=== PATIENT | female | born 1990 | race Caucasian/White ===

== ENCOUNTER 2018-09-28 21:48 | Inpatient (IN) | payer BC ==
[2018-09-28] MEDS ORDERED: LACTATED RINGER'S 1,000 ML IV (21:53)
[2018-09-28] MEDS ORDERED: METHYLERGONOVINE 0.2 MG INJ IM ×2 (22:00→23:00)
[2018-09-28] MEDS ORDERED: BUTORPHANOL 2 MG INJ IV (22:00)
[2018-09-28] MEDS ORDERED: MISOPROSTOL 200 MCG TAB PR ×2 (22:00→23:00)
[2018-09-28] MEDS ORDERED: OXYTOCIN 30 UNITS/LR 500 ML IV ×2 (22:00→23:00)
[2018-09-28] MEDS ORDERED: LIDOCAINE 1% (MPF) 30 ML INJ INJ (22:00)
[2018-09-28] MEDS ORDERED: CARBOPROST 250 MCG INJ IM ×2 (22:00→23:00)
[2018-09-28] MEDS: BUTORPHANOL 2 MG INJ IV (22:19)
[2018-09-28] MEDS: LACTATED RINGER'S 1,000 ML IV* (22:34)
[2018-09-28 22:35] LABS: ADD MAN DIFF? NO
[2018-09-28] MEDS: LACTATED RINGER'S 1,000 ML IV (22:36)
[2018-09-28] MEDS: AMPICILLIN 2 GM/NS (PMX) 100 ML IV (22:36)
[2018-09-28] MEDS: MINERAL OIL LIGHT 10 ML VIAL TOP (22:37)
[2018-09-28] MEDS: OXYTOCIN 30 UNITS/LR 500 ML IV ×2 (22:38→23:38)
[2018-09-28 22:39] LABS: BASOPHIL # 0.1 10^3/ul (0.0-0.1); BASOPHILS % 0.5 % (0.0-2.0); EOSINOPHILS # 0.1 10^3/ul (0.0-0.5); EOSINOPHILS % 0.6 % (0.0-7.0); HEMATOCRIT 33.9 % (37.0-47.0); HEMOGLOBIN 11.5 g/dl (12.0-16.0); LYMPHOCYTES # 2.6 10^3/ul (0.8-2.9); LYMPHOCYTES % 20.5 % (15.0-51.0); MEAN CORPUSCULAR HEMOGLOBIN 32.4 pg (29.0-33.0); MEAN CORPUSCULAR HGB CONC 33.9 g/dl (32.0-37.0); MEAN CORPUSCULAR VOLUME 95.5 fl (82.0-101.0); MEAN PLATELET VOLUME 12.8 fl (7.4-10.4); MONOCYTE # 0.8 10^3/ul (0.3-0.9); MONOCYTES % 6.4 % (0.0-11.0); NEUTROPHIL # 8.9 10^3/ul (1.6-7.5); NEUTROPHILS % 71.3 % (39.0-77.0); PLATELET COUNT 168 10^3/UL (140-415); RED BLOOD COUNT 3.55 10^6/ul (4.20-5.40); RED CELL DISTRIBUTION WIDTH 12.7 % (11.5-14.5)
[2018-09-28 22:39] LABS: WHITE BLOOD COUNT 12.4 10^3/ul (4.8-10.8)
[2018-09-28 23:00] LABS: INR 0.89; PROTIME 12.2 Sec (11.9-14.9)
[2018-09-28] MEDS ORDERED: SENNA/DOCUSATE NA (8.6MG/50MG) TAB PO (23:00)
[2018-09-28] MEDS ORDERED: DIBUCAINE 1% 30 GM OINT TOP (23:00)
[2018-09-28] MEDS ORDERED: ONDANSETRON 4 MG INJ IV (23:00)
[2018-09-28] MEDS ORDERED: ACETAMINOPHEN 325 MG TAB PO ×2 (23:00)
[2018-09-28] MEDS ORDERED: MAGNESIUM HYDROXIDE 30ML CUP PO (23:00)
[2018-09-28 23:01] LABS: PARTIAL THROMBOPLASTIN TIME 27.1 Sec (23.0-35.0)
[2018-09-28 23:05] LABS: ALANINE AMINOTRANSFERASE 33 IU/L (13-69); ALBUMIN 3.9 g/dl (3.3-4.9); ALBUMIN/GLOBULIN RATIO 1.05; ALKALINE PHOSPHATASE 447 IU/L (42-121); ANION GAP 12 (5-13); ASPARTATE AMINO TRANSFERASE 38 IU/L (15-46); BILIRUBIN,INDIRECT 0.5 mg/dl (0-1.1); BILIRUBIN,TOTAL 0.5 mg/dl (0.2-1.3); BLOOD UREA NITROGEN 4 mg/dl (7-20); CALCIUM 9.6 mg/dl (8.4-10.2); CARBON DIOXIDE 19 mmol/L (21-31); CHLORIDE 108 mmol/L (97-110); CREATININE 0.53 mg/dl (0.44-1.00); Estimated GFR > 60 mL/min (>60); GLUCOSE 85 mg/dl (70-220); POTASSIUM 4.5 mmol/L (3.5-5.1); SODIUM 139 mmol/L (135-144); TOTAL PROTEIN 7.6 g/dl (6.1-8.1)
[2018-09-28 23:19] LABS: URIC ACID 5.1 mg/dl (3.1-7.9)
[2018-09-28 23:33] LABS: HEPATITIS B SURFACE ANTIGEN NEGATIVE (NEGATIVE)
[2018-09-28 23:56] LABS: HIV 1&2 ANTIBODY NEGATIVE (NEGATIVE)
[2018-09-29] MEDS: IBUPROFEN 600 MG TAB PO ×3 (00:22→15:07)
[2018-09-29] MEDS ORDERED: LABETALOL HCL 20MG INJ IV (00:34)
[2018-09-29] MEDS: LABETALOL HCL 20MG INJ IV ×2 (00:54→03:05)
[2018-09-29 01:39] LABS: BARBITURATES Negative (NEGATIVE); BENZODIAZEPINES Negative (NEGATIVE); CANNABINOIDS Positive (NEGATIVE); COCAINE Negative (NEGATIVE); OPIATES Negative (NEGATIVE)
[2018-09-29 01:45] LABS: AMPHETAMINE/METHAMPHETAMINE Positive (NEGATIVE)
[2018-09-29 02:47] LABS: ADD UMIC NO; UR ASCORBIC ACID NEGATIVE (NEGATIVE); UR BILIRUBIN (Dip) NEGATIVE (NEGATIVE); UR BLOOD (Dip) NEGATIVE (NEGATIVE); UR CLARITY CLEAR (CLEAR); UR COLOR YELLOW (YELLOW); UR GLUCOSE (Dip) NEGATIVE (NEGATIVE); UR KETONES (Dip) 1+ mg/dL (NEGATIVE); UR LEUKOCYTE ESTERASE (Dip) NEGATIVE Leu/ul (NEGATIVE); UR NITRITE (Dip) NEGATIVE (NEGATIVE); UR TOTAL PROTEIN (Dip) NEGATIVE (NEGATIVE); UR UROBILINOGEN (Dip) NEGATIVE (NEGATIVE)
[2018-09-29] MEDS: AMPICILLIN 1 GM/NS (PMX) 50 ML IV (03:00)
[2018-09-29] MEDS: LABETALOL 100 MG TAB PO ×3 (03:03→21:45)
[2018-09-29] MEDS: hydrALAzine 20 MG INJ IV (03:46)
[2018-09-29] MEDS: OXYTOCIN 30 UNITS/LR 500 ML IV (03:56)
[2018-09-29] MEDS: WITCH HAZEL/GLYCERIN PAD PR (06:04)
[2018-09-29] MEDS: LANOLIN HPA 1 PKT TOP (06:05)
[2018-09-29] MEDS: BENZOCAINE 20% 56 ML SPRAY TOP (06:05)
[2018-09-29] MEDS: LACTATED RINGER'S 1,000 ML IV* ×2 (06:34→14:34)
[2018-09-29 06:41] LABS: ADD MAN DIFF? NO
[2018-09-29 06:48] LABS: BASOPHILS % 0.3 % (0.0-2.0); EOSINOPHILS % 0.3 % (0.0-7.0); HEMOGLOBIN 8.2 g/dl (12.0-16.0); LYMPHOCYTES # 2.2 10^3/ul (0.8-2.9); MEAN CORPUSCULAR HEMOGLOBIN 32.9 pg (29.0-33.0); MEAN CORPUSCULAR HGB CONC 34.2 g/dl (32.0-37.0); MEAN CORPUSCULAR VOLUME 96.4 fl (82.0-101.0); MEAN PLATELET VOLUME 12.8 fl (7.4-10.4); MONOCYTE # 0.8 10^3/ul (0.3-0.9); MONOCYTES % 6.2 % (0.0-11.0); NEUTROPHIL # 9.7 10^3/ul (1.6-7.5); NEUTROPHILS % 75.7 % (39.0-77.0); PLATELET COUNT 121 10^3/UL (140-415); RED BLOOD COUNT 2.49 10^6/ul (4.20-5.40); RED CELL DISTRIBUTION WIDTH 12.8 % (11.5-14.5)
[2018-09-29 06:48] LABS: WHITE BLOOD COUNT 12.8 10^3/ul (4.8-10.8)
[2018-09-29 20:43] LABS: RAPID PLASMA REAGIN NONREACTIVE (NR)
[2018-09-30] MEDS: IBUPROFEN 600 MG TAB PO ×2 (00:19→11:36)
[2018-09-30 08:20] LABS: ADD MAN DIFF? NO
[2018-09-30 08:23] LABS: BASOPHILS % 0.3 % (0.0-2.0); EOSINOPHILS # 0.2 10^3/ul (0.0-0.5); EOSINOPHILS % 1.6 % (0.0-7.0); HEMATOCRIT 22.9 % (37.0-47.0); HEMOGLOBIN 7.4 g/dl (12.0-16.0); LYMPHOCYTES # 2.6 10^3/ul (0.8-2.9); LYMPHOCYTES % 25.9 % (15.0-51.0); MEAN CORPUSCULAR HEMOGLOBIN 31.5 pg (29.0-33.0); MEAN CORPUSCULAR HGB CONC 32.3 g/dl (32.0-37.0); MEAN CORPUSCULAR VOLUME 97.4 fl (82.0-101.0); MEAN PLATELET VOLUME 12.5 fl (7.4-10.4); MONOCYTE # 0.7 10^3/ul (0.3-0.9); MONOCYTES % 6.5 % (0.0-11.0); NEUTROPHIL # 6.6 10^3/ul (1.6-7.5); NEUTROPHILS % 64.9 % (39.0-77.0); PLATELET COUNT 132 10^3/UL (140-415); RED BLOOD COUNT 2.35 10^6/ul (4.20-5.40); RED CELL DISTRIBUTION WIDTH 13.2 % (11.5-14.5)
[2018-09-30 08:23] LABS: WHITE BLOOD COUNT 10.1 10^3/ul (4.8-10.8)
[2018-09-30] MEDS: LABETALOL 100 MG TAB PO (08:32)
[2018-10-02 14:57] LABS: RUBELLA ANTIBODY - IGG 1.54 index; RUBELLA ANTIBODY - IGM <20.00 AU/mL
== END 2018-09-30 19:50 | disposition home or self-care (01) | DRG 807 ==
LOC: OBT 21:48 → PP1 09-29 05:50 → L-D 21:49 → OBT 21:51 → L-D 21:49
PROVIDERS: Obstetrics & Gynecology Gynecology
PROC: 10E0XZZ Delivery of Products of Conception, External Approach (ICD-10-PCS; principal; 2018-09-28)
DX: O99.323 Drug use complicating pregnancy, third trimester (principal); F15.90 Other stimulant use, unspecified, uncomplicated; F12.90 Cannabis use, unspecified, uncomplicated; Z3A.37 37 weeks gestation of pregnancy; Z37.0 Single live birth
CPT/HCPCS: 80053; 80307; 81003; 84560; 85025; 85610; 85730; 86592; 86703; 86762; 86850; 86900; 86901; 87340; 88307; 99464